=== PATIENT | male | born 1990 | race Caucasian/White ===

== ENCOUNTER 2016-09-23 19:05 | Emergency (ER) | payer OTHER ==
[2016-09-23 22:26] VITALS: BP 122/74
== END 2016-09-23 22:26 | disposition home or self-care (01) ==
LOC: ED 19:05
DX: S62.312A Displaced fracture of base of third metacarpal bone, right hand, initial encounter for closed fracture (principal); S62.316A Displaced fracture of base of fifth metacarpal bone, right hand, initial encounter for closed fracture; V87.8XXA Person injured in other specified noncollision transport accidents involving motor vehicle (traffic), initial encounter; Y93.89 Activity, other specified; Y99.8 Other external cause status; Y92.89 Other specified places as the place of occurrence of the external cause
CPT/HCPCS: 90715; J1885

== ENCOUNTER 2017-09-11 19:07 | Emergency (ER) | payer OTHER ==
[~2017-09-11] VITALS: Ht 170.2 cm; Wt 61.2 kg
[2017-09-11 19:39] VITALS: Ht 170.2 cm; Wt 61.2 kg
[2017-09-11 21:53] VITALS: BP 128/76
== END 2017-09-11 21:53 | disposition home or self-care (01) ==
LOC: ED 19:07
DX: J03.90 Acute tonsillitis, unspecified (principal); F17.210 Nicotine dependence, cigarettes, uncomplicated

== ENCOUNTER 2017-09-27 12:13 | Emergency (ER) | payer OTHER ==
[~2017-09-27] VITALS: Ht 170.2 cm; Wt 63.5 kg
[2017-09-27 12:30] VITALS: BP 124/80; Ht 170.2 cm; Wt 63.5 kg
[2017-09-28 13:14] LABS: RAPID PLASMA REAGIN Non Reactive (Non Reactive)
== END 2017-09-27 14:48 | disposition home or self-care (01) ==
LOC: ED 12:13
PROVIDERS: Emergency Medicine
DX: A64 Unspecified sexually transmitted disease (principal); J02.9 Acute pharyngitis, unspecified; R10.9 Unspecified abdominal pain; R36.9 Urethral discharge, unspecified

== ENCOUNTER 2019-08-03 09:48 | Emergency (ER) | payer SELFPAY ==
[~2019-08-03] VITALS: Ht 167.6 cm; Wt 66.2 kg
[2019-08-03 09:54] VITALS: BP 127/82; Ht 167.6 cm; Wt 66.2 kg
== END 2019-08-03 11:35 | disposition home or self-care (01) ==
LOC: ED 09:48
DX: S62.611A Displaced fracture of proximal phalanx of left index finger, initial encounter for closed fracture (principal); W23.0XXA Caught, crushed, jammed, or pinched between moving objects, initial encounter; Y93.61 Activity, american tackle football; Y92.321 Football field as the place of occurrence of the external cause; Y99.8 Other external cause status
CPT/HCPCS: 99406; A4570

== ENCOUNTER 2019-08-06 16:56 | Emergency (ER) | payer SELFPAY ==
[~2019-08-06] VITALS: Ht 167.6 cm; Wt 65.8 kg
[2019-08-06 17:10] VITALS: BP 142/76; Ht 167.6 cm; Wt 65.8 kg
== END 2019-08-06 17:39 | disposition home or self-care (01) ==
LOC: ED 16:56
DX: S62.618D Displaced fracture of proximal phalanx of other finger, subsequent encounter for fracture with routine healing (principal); X58.XXXD Exposure to other specified factors, subsequent encounter
CPT/HCPCS: A4570

== ENCOUNTER 2019-08-30 11:13 | Emergency (ER) | payer SELFPAY ==
[~2019-08-30] VITALS: Ht 167.6 cm; Wt 63.5 kg
[2019-08-30 11:55] VITALS: BP 112/91; Ht 167.6 cm; Wt 63.5 kg
== END 2019-08-30 15:26 | disposition home or self-care (01) ==
LOC: ED 11:13
DX: S61.201A Unspecified open wound of left index finger without damage to nail, initial encounter (principal); Z98.890 Other specified postprocedural states; X58.XXXA Exposure to other specified factors, initial encounter; Y93.61 Activity, american tackle football; Y92.321 Football field as the place of occurrence of the external cause; Y99.8 Other external cause status